=== PATIENT | female | born 1945 | race Caucasian/White ===

== ENCOUNTER → 2023-04-10 | Emergency (ER) | payer OTHER ==
[~2023-04-10] MED LIST: BENZONATATE 100 MG CAP PO ONE
[2023-04-10 19:06] LABS: SARS-COV-2 RT PCR NEGATIVE (NEGATIVE)
--- NOTE | 2023-04-10 19:22 | RAD REPORT ---
EXAM DESCRIPTION: Vivek Cary And Maryanne (2 Views)04/10/2023 6:37 pm CLINICAL HISTORY: Cough COMPARISON: None FINDINGS: Lungs are moderately to markedly hyperaerated The lungs appear clear of acute infiltrate. The heart is normal size IMPRESSION: COPD without visualization of an acute abnormality
--- NOTE | 2023-04-10 19:26 | EDPHYS ---
Physician Documentation [facility] Name: Randi Waters Age: 78 yrs Sex: Female : 1945 Arrival Date: 04/10/2023 Time: 17:51 Bed IW1 Private MD: ED Physician Austin Cobb HPI: 04/10 18:15 This 78 yrs old Female presents to ER via Ambulatory with complaints of Cough, cp Shortness Of Breath. 18:15 The patient or guardian reports cough, that is intermittent. Onset: The cp symptoms/episode began/occurred for past several days. Severity of symptoms: in the emergency department the symptoms are actually worse. Associated signs and symptoms: Pertinent positives: sore throat, Pertinent negatives: chest pain, diarrhea, fever, vomiting. Historical: - Allergies: 18:02 Codeine; nj1 - PMHx: 18:02 Hypertensive disorder; Dermal lupus; nj1 - Immunization history:: Client reports receiving the 2nd dose of the Covid vaccine. - Social history:: Smoking status: Patient reports the use of cigarette tobacco products, smokes one pack cigarettes per day. ROS: 18:20 Constitutional: Negative for body aches, chills, fever, poor PO intake, cp 18:20 Eyes: Negative for injury, pain, redness, and discharge, cp 18:20 ENT: Positive for sore throat, Negative for drainage from ear(s), ear pain, difficulty swallowing, difficulty handling secretions, 18:20 Cardiovascular: Positive for chest pain, with cough, Negative for edema, palpitations, 18:20 Respiratory: Positive for cough, with no reported sputum, shortness of breath, Negative for wheezing, 18:20 Abdomen/GI: Negative for abdominal pain, vomiting, diarrhea, constipation, 18:20 Back: Negative for pain at rest, pain with movement, 18:20 Neuro: Negative for altered mental status, dizziness, headache, weakness, 18:20 All other systems are negative, Exam: 18:25 Constitutional: The patient appears in no acute distress, alert, awake, cp non-diaphoretic, non-toxic, well developed, well nourished, 18:25 Head/Face: Normocephalic, atraumatic. cp 18:25 Eyes: Periorbital structures: appear normal, Conjunctiva: normal, no exudate, no injection, Sclera: no appreciated abnormality, Lids and lashes: appear normal, bilaterally, 18:25 ENT: External ear(s): are unremarkable, Nose: is normal, Mouth: Lips: moist, Oral mucosa: moist, Posterior pharynx: Airway: no evidence of obstruction, patent, Tonsils: no enlargement, no exudate, Uvula: midline, swelling, is not appreciated, erythema, that is mild, exudate, is not appreciated, 18:25 Neck: ROM/movement: Meningeal signs: are not present, Lymph nodes: no appreciated lymphadenopathy, 18:25 Chest/axilla: Inspection: normal, 18:25 Cardiovascular: Rate: normal, Rhythm: regular, Edema: is not appreciated, JVD: is not appreciated, 18:25 Respiratory: the patient does not display signs of respiratory distress, Respirations: normal, no use of accessory muscles, no retractions, labored breathing, is not present, Breath sounds: bronchial sounds, that are mild, are heard diffusely, stridor, is not appreciated, wheezing: is not appreciated, 18:25 Abdomen/GI: Inspection: abdomen appears normal, Palpation: abdomen is soft and non-tender, in all quadrants, 18:25 Back: pain, is absent, ROM is normal, Vital Signs: 17:59 BP 133 / 90; Pulse 87; Resp 18; Temp 98.7(O); Pulse Ox 100% ; Weight 52.16 kg; Height 5 nj1 ft. 4 in. ; 20:03 BP 131 / 76; Pulse 80; Resp 18; Pulse Ox 100% ; hb 17:59 Body Mass Index 19.74 (52.16 kg, 162.56 cm) nj1 MDM: 18:05 Patient medically screened. 19:00 Differential Diagnosis: Bronchitis Influenza Pharyngitis Otitis Media Viral Syndrome cp Pneumonia. 19:25 Data reviewed: vital signs, nurses notes, lab test result(s), radiologic studies, plain cp films, and as a result, I will discharge patient. 19:25 I considered the following discharge prescriptions or medication management in the emergency department Medications were administered in the Emergency Department. See MAR. Care significantly affected by the following chronic conditions: Hypertension. Counseling: I had a detailed discussion with the patient and/or guardian regarding the historical points, exam findings, and any diagnostic results supporting the discharge/admit diagnosis, lab results, radiology results, to return to the emergency department if symptoms worsen or persist or if there are any questions or concerns that arise at home. Response to treatment: the patient's symptoms have mildly improved after treatment, and as a result, I will discharge patient. 04/10 18:09 Order name: COVID-19/FLU A+B/RSV; Complete Time: 19:11 cp 04/10 19:11 Interpretation: Reviewed. cp 04/10 18:09 Order name: XRAY Chest Pa And Lat (2 Views); Complete Time: 19:28 cp 04/10 19:28 Interpretation: Report reviewed. cp Administered Medications: 19:12 Drug: Tessalon Perle PO 100 mg PO once Route: PO; nj1 20:03 Follow up: Response: No adverse reaction hb Disposition Summary: 04/10/23 19:25 Discharge Ordered Notes: Location: Home cp Problem: new cp Symptoms: have improved cp Condition: Stable cp Diagnosis - Cough cp Followup: cp - With: Private Physician - When: 2 - 3 days - Reason: Worsening of condition Discharge Instructions: - Discharge Summary Sheet cp - Cough, Adult cp Forms: - Medication Reconciliation Form cp - Thank You Letter cp - Antibiotic Education cp - Prescription Opioid Use cp - Patient Portal Instructions cp - Leadership Thank You Letter cp Prescriptions: - Bromfed DM 2-30-10 mg/5 mL Oral syrup - administer 10 milliliter ORAL route every 6 hours as needed for cold symptoms; cp 240 milliliter; Refills: 0, Product Selection Permitted - albuterol sulfate 90 mcg/actuation Inhalation HFA Aerosol Inhaler - inhale 1 inhalation INHALATION route every 6 hours As needed administer via cp ventilator; 1 unit; Refills: 0, Product Selection Permitted - Zithromax Z-Taz 250 mg Oral Tablet - take 1 tablet ORAL route as directed for 5 days Day 1 - take two (2) tablets cp one time. Day 2, 3, 4 , 5 take one (1) tablet once daily.; 6 tablet; Refills: 0, Product Selection Permitted Signatures: Dispatcher [employer] EDMS Austin Reyes PA PA cp Nancy Gomez RN RN nj1 Caroline Ayala RN hb
--- NOTE | 2023-04-10 19:26 | ER ---
Nurse's Notes [facility] Name: Randi Waters Age: 78 yrs Sex: Female : 1945 Arrival Date: 04/10/2023 Time: 17:51 Bed IW1 Private MD: Diagnosis: Cough Presentation: 04/10 17:59 Chief complaint: Patient states: Coughing that gets so severe that feels like "i cannot nj1 breath" for the last few days, got worse yesterday. Coronavirus screen: Vaccine status: Patient reports receiving the 2nd dose of the covid vaccine. Ebola Screen: Patient denies travel to an Ebola-affected area in the 21 days before illness onset. Initial Sepsis Screen: Does the patient meet any 2 criteria? No. Patient's initial sepsis screen is negative. Does the patient have a suspected source of infection? No. Patient's initial sepsis screen is negative. Risk Assessment: Do you want to hurt yourself or someone else? Patient reports no desire to harm self or others. Onset of symptoms was March 2023. 17:59 Method Of Arrival: Ambulatory [facility] 17:59 Acuity: CARLO 3 nj1 Triage Assessment: 18:05 General: Appears in no apparent distress. comfortable, Behavior is calm, cooperative, hb appropriate for age. 18:05 Pain: Denies pain. Respiratory: Reports cough that is non-productive, Airway is patent hb Respiratory effort is even, unlabored, Onset: The symptoms/episode began/occurred gradually, the patient has mild shortness of breath. Historical: - Allergies: 18:02 Codeine; nj1 - PMHx: 18:02 Hypertensive disorder; Dermal lupus; nj1 - Immunization history:: Client reports receiving the 2nd dose of the Covid vaccine. - Social history:: Smoking status: Patient reports the use of cigarette tobacco products, smokes one pack cigarettes per day. Assessment: 20:03 Reassessment: Patient appears in no apparent distress at this time. Patient is alert, hb oriented x 3, equal unlabored respirations, skin warm/dry/pink. Vital Signs: 17:59 BP 133 / 90; Pulse 87; Resp 18; Temp 98.7(O); Pulse Ox 100% ; Weight 52.16 kg; Height 5 nj1 ft. 4 in. ; 20:03 BP 131 / 76; Pulse 80; Resp 18; Pulse Ox 100% ; hb 17:59 Body Mass Index 19.74 (52.16 kg, 162.56 cm) [facility] ED Course: 17:56 Patient arrived in ED. im 17:57 Austin Reyes PA is PHCP. cp 17:57 Austin Cobb MD is Attending Physician. cp 18:02 Triage completed. nj1 18:04 Arm band placed on left wrist. nj1 18:39 XRAY Chest Pa And Lat (2 Views) In Process Unspecified. EDMS 20:04 No provider procedures requiring assistance completed. Patient did not have IV access hb during this emergency room visit. 20:05 Provided Education on: discharge instructions. hb Administered Medications: 19:12 Drug: Tessalon Perle PO 100 mg PO once Route: PO; nj 20:03 Follow up: Response: No adverse reaction hb Medication: 20:05 VIS not applicable for this client. hb Outcome: 19:25 Discharge ordered by MD. cp 20:04 Discharged to home ambulatory, with friend, hb 20:04 Condition: stable 20:04 Discharge instructions given to patient, Instructed on discharge instructions, follow up and referral plans. medication usage, Demonstrated understanding of instructions, follow-up care, medications, Prescriptions given X 3, 20:05 Patient left the ED. hb Signatures: Dispatcher [employer] EDOK Austin Reyes PA PA cp Baxter, Heather, RN RN Nancy Gomez RN RN nj Brit Rubio
[2023-04-10 20:16] VITALS: BP 131/76; TEMP 98.7; O2SAT 100
== END ==
LOC: ER 17:51
DX: R05.9 Cough, unspecified (principal); J44.9 Chronic obstructive pulmonary disease, unspecified; F17.210 Nicotine dependence, cigarettes, uncomplicated; I10 Essential (primary) hypertension; Z11.52 Encounter for screening for COVID-19; Z88.5 Allergy status to narcotic agent
CPT/HCPCS: 0241U; 71046; 99283